=== PATIENT | male | born 1950 | race Caucasian/White ===

== ENCOUNTER → 2017-02-25 | Outpatient (CLI) | payer MEDICARE, OTHER ==
[~2017-02-25] MED LIST: ARICEPT10 MG PO; ASPIRIN 32325 MG/TAB PO; BIAXIN 500MG T500 MG PO; DESYREL 50MG50 MG PO; DETROL LA4 PO; ENABLEX 7.5MG7.5 MG PO; FLOMAX 0.40.4 MG/CAP PO; FOLIC ACID 11 MG/TA1 PO; GLUCOPHAGE500 MG/TAB PO; GLUCOTROL XL2.5 MG PO; HCTZ 25MG TAB25 MG PO; HYTRIN 2MG CAPSU2 MG PO; K-TAB20; LASIX 20MG TABL20 MG PO; LEVOXYL0.05 MG PO; LIPITOR 10MG10 MG PO; LOPRESSOR100 MG PO; MAXZIDE 50 MG-71 TAB PO; PRIL40 PO; PROTONIX 40MG T40 MG PO; SINGULAIR 110 MG/TAB PO; VISTARIL50 MG PO; VITAMIN D1000 IU PO; [UNRECOGNIZED DRUG - CODE] PO
== END ==
LOC: BHSO 10:43
DX: F43.10 Post-traumatic stress disorder, unspecified (principal)
CPT/HCPCS: 90791-AI

== ENCOUNTER → 2017-03-04 | Outpatient (CLI) | payer MEDICARE, OTHER | LOC: MHCPAIN 11:30 | DX: G89.29 Other chronic pain (principal); M47.817 Spondylosis without myelopathy or radiculopathy, lumbosacral region; Z87.891 Personal history of nicotine dependence | CPT/HCPCS: G0463 ==

== ENCOUNTER → 2017-03-06 | Outpatient (CLI) | payer MEDICARE, OTHER | LOC: MHCPAIN 11:17 | DX: M47.817 Spondylosis without myelopathy or radiculopathy, lumbosacral region (principal) | CPT/HCPCS: J1040; Q9967 ==

== ENCOUNTER → 2017-03-27 | Outpatient (CLI) | payer MEDICARE, OTHER | LOC: BHSO 09:59 | DX: F43.10 Post-traumatic stress disorder, unspecified (principal) ==

== ENCOUNTER → 2017-04-07 | Outpatient (CLI) | payer MEDICARE, OTHER | LOC: MHCPAIN 12:05 | DX: G89.29 Other chronic pain (principal); M47.817 Spondylosis without myelopathy or radiculopathy, lumbosacral region; M53.3 Sacrococcygeal disorders, not elsewhere classified; Z87.891 Personal history of nicotine dependence | CPT/HCPCS: G0463 ==

== ENCOUNTER → 2017-04-25 | Outpatient (CLI) | payer MEDICARE, OTHER | LOC: BHSO 10:29 | DX: F43.10 Post-traumatic stress disorder, unspecified (principal) ==

== ENCOUNTER → 2017-06-23 | Outpatient (CLI) | payer MEDICARE, OTHER | LOC: MHCPAIN 11:16 | DX: G89.29 Other chronic pain (principal); M47.817 Spondylosis without myelopathy or radiculopathy, lumbosacral region; M53.3 Sacrococcygeal disorders, not elsewhere classified | CPT/HCPCS: G0463 ==

== ENCOUNTER → 2017-06-27 | Outpatient (CLI) | payer MEDICARE, OTHER | LOC: BHSO 12:51 | DX: F43.10 Post-traumatic stress disorder, unspecified (principal) ==

== ENCOUNTER → 2017-08-05 | Outpatient (CLI) | payer MEDICARE, OTHER ==
[~2017-08-05] MED LIST changes: +B-12 100 MCG PO; +COLACE 100100 MG/CAP PO; +FISH OIL 1000MG1 CAP PO; +KLONOPIN 0.5MG0.5 MG PO; +KLOR-CON 1010 MEQ PO; +MELATONIN1 MG PO; +MOBIC15 MG PO; +NEXIUM 40MG40 MG PO; +PERCOCET 325 MG1 TA2 PO; +ZOFRAN ODT4 MG PO; +ZYPREXA20 MG PO
== END ==
LOC: MHCPAIN 13:02
DX: G89.29 Other chronic pain (principal); M47.817 Spondylosis without myelopathy or radiculopathy, lumbosacral region; Z87.891 Personal history of nicotine dependence; Z79.82 Long term (current) use of aspirin
CPT/HCPCS: G0463

== ENCOUNTER → 2017-08-20 | Outpatient (CLI) | payer MEDICARE, OTHER | LOC: BHSO 12:54 | DX: F43.10 Post-traumatic stress disorder, unspecified (principal) ==

== ENCOUNTER → 2017-08-28 | Outpatient (CLI) | payer MEDICARE, OTHER | LOC: MHCPAIN 10:29 | DX: M47.817 Spondylosis without myelopathy or radiculopathy, lumbosacral region (principal) ==

== ENCOUNTER → 2017-09-03 | Outpatient (CLI) | payer MEDICARE, OTHER | LOC: MHCPAIN 12:32 | DX: G89.29 Other chronic pain (principal); M47.817 Spondylosis without myelopathy or radiculopathy, lumbosacral region | CPT/HCPCS: G0463 ==

== ENCOUNTER → 2017-10-09 | Outpatient (CLI) | payer MEDICARE, OTHER | LOC: MHCPAIN 07:06 | DX: G89.29 Other chronic pain (principal); M47.817 Spondylosis without myelopathy or radiculopathy, lumbosacral region; M46.96 Unspecified inflammatory spondylopathy, lumbar region; Z87.891 Personal history of nicotine dependence | CPT/HCPCS: G0463; J2250; J3010 ==

== ENCOUNTER → 2017-10-16 | Outpatient (CLI) | payer MEDICARE, OTHER | LOC: MHCPAIN 07:14 | DX: M47.817 Spondylosis without myelopathy or radiculopathy, lumbosacral region (principal) | CPT/HCPCS: J2250; J3010 ==

== ENCOUNTER → 2017-10-27 | Outpatient (CLI) | payer MEDICARE, OTHER | LOC: BHSO 13:23 | DX: F43.10 Post-traumatic stress disorder, unspecified (principal) | CPT/HCPCS: G0463 ==

== ENCOUNTER → 2017-12-15 | Outpatient (CLI) | payer MEDICARE, OTHER | LOC: MHCPAIN 13:15 | DX: G89.29 Other chronic pain (principal); M47.817 Spondylosis without myelopathy or radiculopathy, lumbosacral region | CPT/HCPCS: G0463 ==

== ENCOUNTER → 2018-03-04 | Outpatient (CLI) | payer MEDICARE, OTHER | LOC: BHSO 10:36 | DX: F43.10 Post-traumatic stress disorder, unspecified (principal) | CPT/HCPCS: G0463 ==

== ENCOUNTER → 2018-06-22 | Outpatient (CLI) | payer MEDICARE, OTHER | LOC: MHCPAIN 10:49 | DX: G89.29 Other chronic pain (principal); M47.817 Spondylosis without myelopathy or radiculopathy, lumbosacral region; M53.3 Sacrococcygeal disorders, not elsewhere classified | CPT/HCPCS: G0463 ==

== ENCOUNTER → 2018-07-02 | Outpatient (CLI) | payer MEDICARE, OTHER | LOC: MHCPAIN 11:21 | DX: M47.817 Spondylosis without myelopathy or radiculopathy, lumbosacral region (principal); M54.5 Low back pain ==

== ENCOUNTER → 2018-07-08 | Outpatient (CLI) | payer MEDICARE, OTHER | LOC: MHCPAIN 12:28 | DX: G89.29 Other chronic pain (principal); M47.817 Spondylosis without myelopathy or radiculopathy, lumbosacral region; M53.3 Sacrococcygeal disorders, not elsewhere classified | CPT/HCPCS: G0463 ==

== ENCOUNTER → 2018-07-16 | Outpatient (CLI) | payer MEDICARE, OTHER | LOC: MHCPAIN 07:36 | DX: M47.817 Spondylosis without myelopathy or radiculopathy, lumbosacral region (principal); M54.16 Radiculopathy, lumbar region | CPT/HCPCS: J2250; J3010 ==

== ENCOUNTER → 2018-07-27 | Outpatient (CLI) | payer MEDICARE, OTHER | LOC: MHCPAIN 08:25 | DX: M47.817 Spondylosis without myelopathy or radiculopathy, lumbosacral region (principal); M54.16 Radiculopathy, lumbar region | CPT/HCPCS: J2250; J3010 ==

== ENCOUNTER → 2018-10-13 | Outpatient (CLI) | payer MEDICARE, OTHER | LOC: MHCPAIN 14:31 | DX: G89.29 Other chronic pain (principal); M47.817 Spondylosis without myelopathy or radiculopathy, lumbosacral region; M53.3 Sacrococcygeal disorders, not elsewhere classified | CPT/HCPCS: G0463 ==

== ENCOUNTER → 2022-04-29 | Outpatient (CLI) | payer OTHER ==
[~2022-04-29] VITALS: Ht 157.5 cm; Wt 82.9 kg
[~2022-04-29] MED LIST changes: +ACIPHEX20 MG PO; +ALDACTONE 25MG25 M1 PO; +AMBIEN 5MG TABLE5 MG PO; +ASPIRIN 81M81 MG/TA2 PO; +CELLCEPT 250MG250 MG PO; +DEMADEX 20MG20 M1 PO; +DITROPAN XL15 MG PO; +IMDUR 30MG30 MG/TAB PO; +LASIX 40MG TABL40 MG PO; +LIPITOR 80MG80 MG PO; +LOPRESSOR 550 MG/TAB PO; +MINIPRESS 1M1 MG/CAP PO; +MYRBETR50MG PO; +PLAQUENIL 200M200 MG PO; +PLAVIX 75MG TAB75 MG PO; +PLEXUS PO; +PROSVENT PO; +PROZAC 20MG20 MG PO; +REMERON 15M15 MG/TA1 PO; +SERAX30 MG PO; +TOFRANIL 25MG T25 MG PO; +TOPROL XL100 MG PO; +ZAROXOLYN5 MG PO; +ZYLOPRIM 300MG300 MG PO
[2022-04-29 12:40] VITALS: BP 155/76; PULSE 59; TEMP 98.1
[2022-04-29 14:05] VITALS: BP 144/76; PULSE 58
[2022-05-09 17:42] LABS: BODY FLUID PH (AMS) >7.50
== END ==
LOC: COL.RAD 04-15 13:30 → EUO 04-15 13:30 → COL.RAD 04-24 12:00
PROVIDERS: Internal Medicine Pulmonary Disease
DX: J90 Pleural effusion, not elsewhere classified (principal); Z98.890 Other specified postprocedural states
CPT/HCPCS: 19804

== ENCOUNTER 2022-06-27 11:53 | Day surgery (SDC) | payer MEDICARE, OTHER ==
[~2022-06-27] VITALS: Ht 157.5 cm; Wt 85.0 kg
[2022-06-27] VITALS (8 sets, daily range): BP systolic 144–190; BP diastolic 70–97; PULSE 71–84; TEMP 97.1
[2022-06-27 12:47] LABS: HEMOGLOBIN 11.5 g/dl (13.5-18.0); MEAN CELL VOLUME 87 fl (80.0-100.0); MEAN CORPUSCULAR HEMOGLOBIN 29 pg (27-31); MEAN CORPUSCULAR HGB CONC 34 g/dl (33.0-37.0); MEAN PLATELET VOLUME 10.1 fl (7.4-10.4); PLATELET COUNT 161 K/mm3 (130-400); RED BLOOD COUNT 3.94 M/mm3 (4.20-5.60); REDCELL DISTRIBUTION WIDTH-CV 15.7 % (11.5-14.5)
[2022-06-27 12:48] LABS: HEMATOCRIT 34.1 % (42.0-52.0)
[2022-06-27 12:55] LABS: INR 1.1 (0.8-3.0); PROTHROMBIN TIME 13.1 SECONDS (9.7-12.8)
[2022-06-27 12:58] LABS: PARTIAL THROMBOPLASTIN TIME 35.4 SECONDS (26.0-37.0)
[2022-06-27 13:05] LABS: CALCIUM 9.2 mg/dL (8.4-10.2); CREATININE, serum 1.41 mg/dL (0.72-1.25); POTASSIUM 3.7 mmol/L (3.5-4.5)
[2022-06-27] MEDS ORDERED: CVS SPECTRAVIT1 EA15 PO (13:55)
[2022-06-27] MEDS ORDERED: CBD GUMMIES PO (13:55)
--- NOTE | 2022-06-27 16:00 | NUR ---
Pt is back from medical lab director, report from Haris VERAS. Pt is awake and alert, anxious, concerned about his ability to lie flat for 2 hours. labor gang supervisor RNs brought a knee immobilizer for pt, this was applied to rt leg, and pt was positioned on left side with some relief of pt's anxiety. cms intact to pt's right leg. rt groin site soft. dinner ordered. call light in reach.
--- NOTE | 2022-06-27 17:18 | NUR ---
Doc SPENCE has been in to discuss test result and poc with pt. Dr. Kc is at pt's bs at this time to discuss same. PT tolerating bedrest now without any apparant difficulty. he remains in nsr. cms intact to extremities. rt groin site remains soft without evidence of bleeding.
--- NOTE | 2022-06-27 18:31 | NUR ---
Pt is ready for departure at this time. Rt groin site remains soft without evidence of bleeding. I have reviewed dc/rx and fu instructions with pt and daughter. both verbalize understanding. to exit via wheelchair at this time.
== END 2022-06-27 18:33 | disposition home or self-care (01) ==
LOC: COL.CAR 11:53
PROVIDERS: Internal Medicine Interventional Cardiology
DX: I25.10 Atherosclerotic heart disease of native coronary artery without angina pectoris (principal); I13.0 Hypertensive heart and chronic kidney disease with heart failure and stage 1 through stage 4 chronic kidney disease, or unspecified chronic kidney disease; I50.20 Unspecified systolic (congestive) heart failure; N18.30 Chronic kidney disease, stage 3 unspecified; N28.1 Cyst of kidney, acquired; I70.1 Atherosclerosis of renal artery; Z95.5 Presence of coronary angioplasty implant and graft; Z79.899 Other long term (current) drug therapy
CPT/HCPCS: J1644